=== PATIENT | male | born 1970 | race Caucasian/White ===

== ENCOUNTER 2018-01-18 09:44 | Emergency (ER) | payer OTHER ==
--- NOTE | 2018-01-18 09:56 | ERPHSYRPT ---
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 He began work at 6 AM and by 8 AM he had to leave work because of the rash on his arms and face as well as having difficulty breathing. He called his local doctors office and was told to come to the ER. He did not take Benadryl. He thinks he may have an allergy to latex from previous exposure but was uncertain until today. He takes no medicines. Timing/Duration: today, gradual onset, worse Severity of Dyspnea-Max: mild Severity of Dyspnea-Current: mild Possible Cause: no prior episodes, allergen exposure (latex) Modifying Factors: Improves With: nothing Associated Symptoms: wheezing Allergies/Adverse Reactions: latex Allergy (Verified 01/18/18 09:55) Home Medications: No Reportable Medications [No Reported Medications] 11/20/15 [History] Hx Tetanus, Diphtheria Vaccination/Date Given: Yes Hx Influenza Vaccination/Date Given: No Hx Pneumococcal Vaccination/Date Given: No Immunizations Up to Date: Yes - Review of Systems Constitutional: No Fever, No Chills Eyes: No Symptoms Ears, Nose, & Throat: No Symptoms Respiratory: Dyspnea, Wheezing Cardiac: No Chest Pain, No Edema, No Syncope Abdominal/Gastrointestinal: No Abdominal Pain, No Nausea, No Vomiting, No Diarrhea Genitourinary Symptoms: No Dysuria Musculoskeletal: No Back Pain, No Neck Pain Skin: Rash Neurological: No Dizziness, No Focal Weakness, No Sensory Changes Psychological: No Symptoms Endocrine: No Symptoms Hematologic/Lymphatic: No Symptoms Immunological/Allergic: No Symptoms All Other Systems: Reviewed and Negative - Past Medical History Pertinent Past Medical History: No Neurological History: No Pertinent History ENT History: No Pertinent History Cardiac History: No Pertinent History Respiratory History: No Pertinent History Endocrine Medical History: No Pertinent History Musculoskeletal History: No Pertinent History GI Medical History: No Pertinent History History: No Pertinent History Psycho-Social History: No Pertinent History Male Reproductive Disorders: No Pertinent History - Past Surgical History Past Surgical History: No Neuro Surgical History: No Pertinent History Cardiac: No Pertinent History Respiratory: No Pertinent History Gastrointestinal: No Pertinent History Genitourinary: No Pertinent History Musculoskeletal: Orthopedic Surgery Male Surgical History: No Pertinent History Other Surgical History: FOOT SURGERY - Social History Smoking Status: Never smoker How long have you smoked: 30 yrs Exposure to second hand smoke: No Drug Use: none Patient Lives Alone: No - Nursing Vital Signs Nursing Vital Signs: Initial Vital Signs Temperature 97.4 F 01/18/18 09:48 Pulse Rate 102 H 01/18/18 09:48 Respiratory Rate 22 01/18/18 09:48 Blood Pressure 157/87 01/18/18 09:48 O2 Sat by Pulse Oximetry 97 01/18/18 09:48 Pain Scale Pain Intensity 0 - Physical Exam General Appearance: mild distress, anxiety Eye Exam: PERRL/EOMI Ears, Nose, Throat Exam: hearing grossly normal, tonsillar swelling (swelling of pharynx and uvula.) Neck Exam: normal inspection, supple Respiratory Exam: wheezing (mild) Cardiovascular/Chest Exam: normal heart sounds, regular rate/rhythm Abdominal/Gastrointestinal Exam: soft, No tenderness, No distention, No mass Rectal Exam: not done Extremity Exam: non-tender, normal range of motion, normal inspection, no calf tenderness, no pedal edema Neurologic Exam: alert, oriented x 3, cooperative, plant protection guard II-XII nml as tested, sensation nml, No motor deficits Skin Exam: rash (red rash over upper extremities and face.) SpO2 Interpretation: normal SpO2: 98 Oxygen Delivery: Room Air - Radiology Exams Chest X-ray Interpretation: Reviewed by me, Teleradiologist Report (per ), Negative ( per Dr Guerra) Ordered Tests: Active Orders 24 hr Category Date Time Status Cap Blocker STAT Care 01/18/18 10:03 Active IV Insertion STAT Care 01/18/18 10:01 Active Pulse Oximetry (ED) STAT Care 01/18/18 10:01 Active CHEST 2 VIEWS (PA AND LAT) Stat Exams 01/18/18 10:02 Completed BMP Stat Lab 01/18/18 10:28 Completed CBC W DIFF Stat Lab 01/18/18 10:01 Completed Respiratory Nebulizer STAT RT 01/18/18 10:03 Completed Medication Summary Discontinued Medications Generic Name Dose Route Start Last Admin Trade Name Freq PRN Reason Stop Dose Admin Albuterol/Ipratropium 3 ml 01/18/18 10:01 01/18/18 10:05 Duoneb 0.5-3 Mg/3 Ml Neb IH 01/18/18 10:02 3 ml STAT ONE Administration Albuterol/Ipratropium Confirm 01/18/18 10:03 Duoneb 0.5-3 Mg/3 Ml Neb Administered 01/18/18 10:04 Dose 3 ml IH .STK-MED ONE Diphenhydramine HCl 50 mg 01/18/18 10:03 01/18/18 10:24 Benadryl 50 Mg/Ml IV 01/18/18 10:04 50 mg STAT ONE Administration Diphenhydramine HCl Confirm 01/18/18 10:17 Benadryl 50 Mg/Ml Administered 01/18/18 10:18 Dose 50 mg .ROUTE .STK-MED ONE Sodium Chloride 1,000 mls @ 999 mls/hr 01/18/18 10:01 01/18/18 10:23 Sodium Chloride 0.9% 1000 Ml IV 01/18/18 11:01 999 mls/hr .Q1H1M STA Administration Sodium Chloride Confirm 01/18/18 10:17 Sodium Chloride 0.9% 1000 Ml Administered 01/18/18 10:18 Dose 1,000 mls @ ud .ROUTE .STK-MED ONE Methylprednisolone Sodium Succinate 125 mg 01/18/18 10:01 01/18/18 10:24 Solu-Medrol 125 Mg IV 01/18/18 10:02 125 mg STAT ONE Administration Methylprednisolone Sodium Succinate Confirm 01/18/18 10:17 Solu-Medrol 125 Mg Administered 01/18/18 10:18 Dose 125 mg .ROUTE .STK-MED ONE Lab/Rad Data: Laboratory Result Diagrams 01/18/18 10:01 01/18/18 10:28 Laboratory Results 01/18/18 01/18/18 Range/Units 10:28 10:01 WBC 5.3 (4.0-10.5) K/mm3 RBC 5.16 (4.1-5.6) M/mm3 Hgb 12.9 (12.5-18.0) gm/dl Hct 38.7 L (42-50) % MCV 75.0 L (78-100) fl MCH 25.0 L (26-32) pg MCHC 33.3 (32-36) g/dl RDW 14.7 H (11.5-14.0) % Plt Count 130 L (150-450) K/mm3 Gran % 60.1 (36.0-66.0) % Eos # (Auto) 0.20 (0-0.5) Absolute Lymphs (auto) 1.39 (1.0-4.6) Absolute Monos (auto) 0.51 (0.0-1.3) Lymphocytes % 26.3 (24.0-44.0) % Monocytes % 9.6 (0.0-12.0) % Eosinophils % 3.8 (0.00-5.0) % Basophils % 0.2 (0.0-0.4) % Absolute Granulocytes 3.18 (1.4-6.9) Basophils # 0.01 (0-0.4) Sodium 144 (137-145) mmol/L Potassium 3.5 (3.5-5.1) mmol/L Chloride 109 H (98-107) mmol/L Carbon Dioxide 25 (22-30) mmol/L Anion Gap 13.2 (5-15) MEQ/L BUN 12 (9-20) mg/dL Creatinine 0.61 L (0.66-1.25) mg/dL Estimated GFR > 60.0 ML/MIN Glucose 111 H (74-106) mg/dL Calcium 9.1 (8.4-10.2) mg/dL Slides for Path Review YES - Progress Progress: improved Air Movement: good Blood Culture(s) Obtained: No Antibiotics given: No Counseled pt/family regarding: lab results, diagnosis, rad results - Departure Time of Disposition: 11:12 Departure Disposition: Home Clinical Impression: Allergic reaction to chemical substance Condition: Stable Critical Care Time: No Referrals: CAROLINA ENAMORADO [Primary Care Provider] - Additional Instructions: You had an allergic reaction to latex. You were given a DuoNeb breathing treatment in the ER. You were also given Solu-Medrol 125 mg, Benadryl 50 mg, and fluids by IV in the ER. You may continue to take Benadryl 50 mg orally every 2-4 hours as needed. Follow-up with your primary medical doctor as needed.
[2018-01-18] MEDS ORDERED: DUONEB 0.5-3 MG/3 ml Neb IH ONE (10:03)
[2018-01-18] MEDS: DUONEB 0.5-3 MG/3 ml Neb IH ONE (10:05)
[2018-01-18] MEDS ORDERED: solu-MEDROL 125 MG ONE (10:17)
[2018-01-18] MEDS ORDERED: BENADRYL 50 MG/ML ONE (10:17)
[2018-01-18] MEDS ORDERED: Sodium Chloride 0.9% 1000 ML 1,000 ML ONE (10:17)
[2018-01-18] MEDS: Sodium Chloride 0.9% 1000 ML 1,000 ML IV STA (10:23)
[2018-01-18 10:24] LABS: BASOPHIL % 0.2 % (0.0-0.4); Basophil (Absolute #) 0.01 (0-0.4); Eosinophil % 3.8 % (0.00-5.0); Granulocyte Absolute (ANC) 3.18 (1.4-6.9); Granulocytes % 60.1 % (36.0-66.0); Hematocrit 38.7 % (42-50); Hemoglobin 12.9 gm/dl (12.5-18.0); Lymphocyte (Absolute #) 1.39 (1.0-4.6); Lymphocytes % 26.3 % (24.0-44.0); Mean Corpuscular Hgb Concent. 33.3 g/dl (32-36); Monocyte (Absolute #) 0.51 (0.0-1.3); Monocytes % 9.6 % (0.0-12.0); Platelet Count 130 K/mm3 (150-450); Red Blood Count 5.16 M/mm3 (4.1-5.6); Red Cell Distribution Width 14.7 % (11.5-14.0); White Blood Count 5.3 K/mm3 (4.0-10.5)
[2018-01-18] MEDS: solu-MEDROL 125 MG IV ONE (10:24)
[2018-01-18] MEDS: BENADRYL 50 MG/ML IV ONE (10:24)
[2018-01-18 10:38] LABS: Slide Review 1 YES
[2018-01-18 10:40] LABS: ANION GAP 13.2 MEQ/L (5-15); BLOOD UREA NITROGEN 12 mg/dL (9-20); CHLORIDE 109 mmol/L (98-107); Calcium 9.1 mg/dL (8.4-10.2); Carbon Dioxide 25 mmol/L (22-30); Creatinine 1 0.61 mg/dL (0.66-1.25); Glucose 111 mg/dL (74-106); Potassium 3.5 mmol/L (3.5-5.1); SODIUM 144 mmol/L (137-145)
--- NOTE | 2018-01-18 11:08 | XRAY ---
Indication: Short of breath. Comparison: May 21, 2016. PA/lateral chest remains hyperinflated and clear with a few incidental calcified granulomas. Heart is not enlarged. Vascularity normal. Bony thorax intact again with old right clavicle fracture. Impression: Stable nonacute hyperinflated chest with chronic features.
[2018-01-18 11:29] VITALS: BP 127/84
[2018-01-18 11:32] VITALS: PULSE 78; O2SAT 98
== END 2018-01-18 11:32 | disposition home or self-care (01) ==
LOC: ED 09:44
DX: L50.0 Allergic urticaria (principal); R06.02 Shortness of breath; R21 Rash and other nonspecific skin eruption; T65.811A Toxic effect of latex, accidental (unintentional), initial encounter
CPT/HCPCS: 36000; 36415; 71046; 80048; 85025; 93041; 94150; 94640; 96360; 96374; 96375; 99284; J1200; J2930; A9270-GY

== ENCOUNTER 2018-02-09 19:13 | Emergency (ER) | payer OTHER ==
[2018-02-09] MEDS ORDERED: Sodium Chloride 0.9% 1000 ML 1,000 ML ONE ×2 (19:39→20:45)
[2018-02-09] MEDS: Sodium Chloride 0.9% 1000 ML 1,000 ML IV STA ×2 (19:42→20:48)
--- NOTE | 2018-02-09 19:43 | ERPHSYRPT ---
- History of Present Illness Time Seen by Provider: 02/09/18 19:32 Source: patient Exam Limitations: no limitations Patient Subjective Stated Complaint: Pt arrives to ER with c/o cough, sob, fever , sore throat, generalized body aches and "I don't smell right" started yesterday. Saw Dr. Enamorado earlier today and was told "there's nothing wrong with me, it's probably a cold". This RN agrees with PCP diagnosis, but pt wants a 2nd opinion. Triage Nursing Assessment: see above Physician History: 48-year-old white male previously healthy arrives with complaint of general malaise, general myalgia, sore throat, shortness of breath symptoms for one day. Patient was seen by his family doctor today told he perhaps had a "cold" Patient is not vomiting he states that he has some low sacral back pain Denies any injury. Past medical history is negative Past surgical history includes foot surgery due to lawn more accident as a child. Social history occasional alcohol rare marijuana denies tobacco use. Modifying Factors: Improves With: nothing Associated Symptoms: shortness of breath, chills, malaise, No nausea, No vomiting, No abdominal pain, No heartburn, No diaphoresis, No cough, No chest pain, No headaches, No loss of appetite, No syncope, No seizure, No weakness Allergies/Adverse Reactions: latex Allergy (Verified 02/09/18 19:24) Hx Tetanus, Diphtheria Vaccination/Date Given: Yes Hx Influenza Vaccination/Date Given: No Hx Pneumococcal Vaccination/Date Given: No - Review of Systems Constitutional: Malaise, No Fever, No Chills Eyes: No Symptoms Ears, Nose, & Throat: No Symptoms, Throat Pain, No Ear Pain, No Ear Discharge, No Hearing Changes, No Nose Congestion, No Nose Discharge Respiratory: Dyspnea, No Cough, No Cyanosis, No Dyspnea on Exertion (KRUGER), No Wheezing Cardiac: No Chest Pain, No Edema, No Syncope Abdominal/Gastrointestinal: No Abdominal Pain, No Nausea, No Vomiting, No Diarrhea Genitourinary Symptoms: No Dysuria Musculoskeletal: Back Pain Skin: No Rash Neurological: No Dizziness, No Focal Weakness, No Sensory Changes Psychological: No Symptoms Endocrine: No Symptoms All Other Systems: Reviewed and Negative - Past Medical History Pertinent Past Medical History: Yes Neurological History: No Pertinent History ENT History: No Pertinent History Cardiac History: No Pertinent History Respiratory History: No Pertinent History Endocrine Medical History: No Pertinent History Musculoskeletal History: No Pertinent History GI Medical History: No Pertinent History History: No Pertinent History Psycho-Social History: No Pertinent History Male Reproductive Disorders: No Pertinent History - Past Surgical History Past Surgical History: Yes Neuro Surgical History: No Pertinent History Cardiac: No Pertinent History Respiratory: No Pertinent History Gastrointestinal: No Pertinent History Genitourinary: No Pertinent History Musculoskeletal: Orthopedic Surgery Male Surgical History: No Pertinent History Other Surgical History: FOOT SURGERY - Social History Smoking Status: Former smoker How long have you smoked: 30 yrs Exposure to second hand smoke: No Drug Use: none Patient Lives Alone: No - Nursing Vital Signs Nursing Vital Signs: Initial Vital Signs Temperature 100.1 F 02/09/18 19:15 Pulse Rate 106 H 02/09/18 19:15 Respiratory Rate 18 02/09/18 19:15 Blood Pressure 144/90 02/09/18 19:15 O2 Sat by Pulse Oximetry 98 02/09/18 19:15 Pain Scale Pain Intensity 0 - Physical Exam General Appearance: no apparent distress, alert Eye Exam: PERRL/EOMI, eyes nml inspection Ears, Nose, Throat Exam: normal ENT inspection, TMs normal, pharynx normal, moist mucous membranes Neck Exam: normal inspection, non-tender, supple, full range of motion Respiratory Exam: normal breath sounds, lungs clear, No respiratory distress Cardiovascular Exam: regular rate/rhythm (which is artery), normal heart sounds , normal peripheral pulses, friction rub, tachycardia, capillary refill <2 sec Gastrointestinal/Abdomen Exam: soft, normal bowel sounds, No tenderness, No mass Back Exam: normal inspection, normal range of motion, No CVA tenderness, No vertebral tenderness Extremity Exam: normal inspection, normal range of motion, pelvis stable Neurologic Exam: alert, oriented x 3, cooperative, data processing systems project planner II-XII nml as tested, normal mood/affect, nml cerebellar function, nml station & gait, sensation nml, No motor deficits Skin Exam: normal color, warm, dry, No rash Lymphatic Exam: No adenopathy SpO2 Interpretation: normal (99%) SpO2: 99 Oxygen Delivery: Room Air - Course Nursing assessment & vital signs reviewed: Yes EKG Interpreted by Me: RATE (125), Sinus Tach, NORMAL AXIS, Other (EKG sinus tachycardia,with PVCs < NO ACUTE ST or T wave changes noted) - Radiology Exams Chest X-ray Interpretation: Interpreted by me (no acute disease process noted) Ordered Tests: Active Orders 24 hr Category Date Time Status Accucheck STAT Care 02/09/18 19:39 Active EKG-ER Only STAT Care 02/09/18 19:36 Active IV Insertion STAT Care 02/09/18 19:36 Active CHEST 1 VIEW (PORTABLE) Stat Exams 02/09/18 19:36 Taken AMYLASE Stat Lab 02/09/18 19:45 Completed BLOOD CULTURE Stat Lab 02/09/18 19:55 Received CBC W DIFF Stat Lab 02/09/18 19:45 Completed CMP Stat Lab 02/09/18 19:45 Completed CULTURE,SPUTUM Stat Lab 02/09/18 08:14 Received CULTURE,URINE Stat Lab 02/09/18 20:29 Received D-DIMER QUANTITATION Stat Lab 02/09/18 19:45 Completed LIPASE Stat Lab 02/09/18 19:45 Completed Lactic Acid Stat Lab 02/09/18 20:00 Completed TROPONIN Q3H Lab 02/09/18 19:45 Completed TROPONIN Q3H Lab 02/09/18 23:00 Ordered TROPONIN Q3H Lab 02/10/18 02:00 Ordered TROPONIN Q3H Lab 02/10/18 05:00 Ordered TROPONIN Q3H Lab 02/10/18 08:00 Ordered UA W/ MICROSCOPIC Stat Lab 02/09/18 20:29 Completed Urine Triage Profile Stat Lab 02/09/18 20:29 Completed Medication Summary Generic Name Dose Route Start Last Admin Trade Name Freq PRN Reason Stop Dose Admin Sodium Chloride 1,000 mls @ 999 mls/hr 02/09/18 20:41 02/09/18 20:48 Sodium Chloride 0.9% 1000 Ml IV 02/09/18 21:41 999 mls/hr .Q1H1M STA Administration Discontinued Medications Generic Name Dose Route Start Last Admin Trade Name Freq PRN Reason Stop Dose Admin Azithromycin 500 mg 02/09/18 21:26 Zithromax 250 Mg Tablet PO 02/09/18 21:27 STAT ONE Sodium Chloride 1,000 mls @ 999 mls/hr 02/09/18 19:36 02/09/18 20:49 Sodium Chloride 0.9% 1000 Ml IV 02/09/18 20:36 Infused .Q1H1M STA Infusion Sodium Chloride Confirm 02/09/18 19:39 Sodium Chloride 0.9% 1000 Ml Administered 02/09/18 19:40 Dose 1,000 mls @ ud .ROUTE .STK-MED ONE Sodium Chloride Confirm 02/09/18 20:45 Sodium Chloride 0.9% 1000 Ml Administered 02/09/18 20:46 Dose 1,000 mls @ ud .ROUTE .[facility] ONE Lab/Rad Data: Laboratory Result Diagrams 02/09/18 19:45 02/09/18 19:45 Laboratory Results 02/09/18 02/09/18 02/09/18 Range/Units 20:29 20:29 20:00 WBC (4.0-10.5) K/mm3 RBC (4.1-5.6) M/mm3 Hgb (12.5-18.0) gm/dl Hct (42-50) % MCV (78-100) fl MCH (26-32) pg MCHC (32-36) g/dl RDW (11.5-14.0) % Plt Count (150-450) K/mm3 Gran % (36.0-66.0) % Eos # (Auto) (0-0.5) Absolute Lymphs (auto) (1.0-4.6) Absolute Monos (auto) (0.0-1.3) Lymphocytes % (24.0-44.0) % Monocytes % (0.0-12.0) % Eosinophils % (0.00-5.0) % Basophils % (0.0-0.4) % Absolute Granulocytes (1.4-6.9) Basophils # (0-0.4) D-Dimer (215-500) ng/mL Sodium (137-145) mmol/L Potassium (3.5-5.1) mmol/L Chloride (98-107) mmol/L Carbon Dioxide (22-30) mmol/L Anion Gap (5-15) MEQ/L BUN (9-20) mg/dL Creatinine (0.66-1.25) mg/dL Estimated GFR ML/MIN Glucose (74-106) mg/dL Lactic Acid 1.4 (0.4-2.0) Calcium (8.4-10.2) mg/dL Total Bilirubin (0.2-1.3) mg/dL AST (17-59) U/L ALT (0-50) U/L Alkaline Phosphatase (38-126) U/L Troponin I (0.000-0.034) ng/mL Serum Total Protein (6.3-8.2) g/dL Albumin (3.5-5.0) g/dL Amylase (30-110) U/L Lipase (23-300) U/L Ur Collection Type VOID Urine Color YELLOW (YELLOW) Urine Appearance CLEAR (CLEAR) Urine pH 7.0 (5-6) Ur Specific [place] 1.005 (1.005-1.025) Urine Protein TRACE (Negative) Urine Ketones NEGATIVE (NEGATIVE) Urine Blood 5-10 (0-5) Drake/ul Urine Nitrite NEGATIVE (NEGATIVE) Urine Bilirubin NEGATIVE (NEGATIVE) Urine Urobilinogen 1 (0-1) mg/dL Ur Leukocyte Esterase NEGATIVE (NEGATIVE) Urine Microscopic RBC 0-2 (0-2) /HPF Urine Microscopic WBC 0-2 (0-5) /HPF Urine Bacteria RARE (NEGATIVE) /HPF Urine Culture Reflexed YES (NO) Urine Glucose NEGATIVE (NEGATIVE) mg/dL Urine Opiates Level NEGATIVE (NEGATIVE) Ur Methadone NEGATIVE (NEGATIVE) Urine Barbiturates NEGATIVE (NEGATIVE) Ur Phencyclidine (PCP) NEGATIVE (NEGATIVE) Urine Amphetamine NEGATIVE (NEGATIVE) U Benzodiazepine Level NEGATIVE (NEGATIVE) Urine Cocaine NEGATIVE (NEGATIVE) Urine Marijuana (THC) POSITIVE (NEGATIVE) Group A Strep Antibody (NEGATIVE) Specimen Received 02/097 02/09/18 02/09/18 02/09/18 Range/Units 19:55 19:45 19:45 WBC (4.0-10.5) K/mm3 RBC (4.1-5.6) M/mm3 Hgb (12.5-18.0) gm/dl Hct (42-50) % MCV (78-100) fl MCH (26-32) pg MCHC (32-36) g/dl RDW (11.5-14.0) % Plt Count (150-450) K/mm3 Gran % (36.0-66.0) % Eos # (Auto) (0-0.5) Absolute Lymphs (auto) (1.0-4.6) Absolute Monos (auto) (0.0-1.3) Lymphocytes % (24.0-44.0) % Monocytes % (0.0-12.0) % Eosinophils % (0.00-5.0) % Basophils % (0.0-0.4) % Absolute Granulocytes (1.4-6.9) Basophils # (0-0.4) D-Dimer 276 (215-500) ng/mL Sodium (137-145) mmol/L Potassium (3.5-5.1) mmol/L Chloride (98-107) mmol/L Carbon Dioxide (22-30) mmol/L Anion Gap (5-15) MEQ/L BUN (9-20) mg/dL Creatinine (0.66-1.25) mg/dL Estimated GFR ML/MIN Glucose (74-106) mg/dL Lactic Acid (0.4-2.0) Calcium (8.4-10.2) mg/dL Total Bilirubin (0.2-1.3) mg/dL AST (17-59) U/L ALT (0-50) U/L Alkaline Phosphatase (38-126) U/L Troponin I < 0.012 (0.000-0.034) ng/mL Serum Total Protein (6.3-8.2) g/dL Albumin (3.5-5.0) g/dL Amylase (30-110) U/L Lipase (23-300) U/L Ur Collection Type Urine Color (YELLOW) Urine Appearance (CLEAR) Urine pH (5-6) Ur Specific [place] (1.005-1.025) Urine Protein (Negative) Urine Ketones (NEGATIVE) Urine Blood (0-5) Drake/ul Urine Nitrite (NEGATIVE) Urine Bilirubin (NEGATIVE) Urine Urobilinogen (0-1) mg/dL Ur Leukocyte Esterase (NEGATIVE) Urine Microscopic RBC (0-2) /HPF Urine Microscopic WBC (0-5) /HPF Urine Bacteria (NEGATIVE) /HPF Urine Culture Reflexed (NO) Urine Glucose (NEGATIVE) mg/dL Urine Opiates Level (NEGATIVE) Ur Methadone (NEGATIVE) Urine Barbiturates (NEGATIVE) Ur Phencyclidine (PCP) (NEGATIVE) Urine Amphetamine (NEGATIVE) U Benzodiazepine Level (NEGATIVE) Urine Cocaine (NEGATIVE) Urine Marijuana (THC) (NEGATIVE) Group A Strep Antibody NEGATIVE (NEGATIVE) Specimen Received 02/09/18 02/09/18 Range/Units 19:45 19:45 WBC 7.2 (4.0-10.5) K/mm3 RBC 4.99 (4.1-5.6) M/mm3 Hgb 12.8 (12.5-18.0) gm/dl Hct 37.7 L (42-50) % MCV 75.6 L (78-100) fl MCH 25.7 L (26-32) pg MCHC 34.0 (32-36) g/dl RDW 14.5 H (11.5-14.0) % Plt Count 116 L (150-450) K/mm3 Gran % 76.9 H (36.0-66.0) % Eos # (Auto) 0.01 (0-0.5) Absolute Lymphs (auto) 0.75 L (1.0-4.6) Absolute Monos (auto) 0.90 (0.0-1.3) Lymphocytes % 10.4 L (24.0-44.0) % Monocytes % 12.5 H (0.0-12.0) % Eosinophils % 0.1 (0.00-5.0) % Basophils % 0.1 (0.0-0.4) % Absolute Granulocytes 5.55 (1.4-6.9) Basophils # 0.01 (0-0.4) D-Dimer (215-500) ng/mL Sodium 140 (137-145) mmol/L Potassium 3.5 (3.5-5.1) mmol/L Chloride 103 (98-107) mmol/L Carbon Dioxide 26 (22-30) mmol/L Anion Gap 14.7 (5-15) MEQ/L BUN 11 (9-20) mg/dL Creatinine 0.58 L (0.66-1.25) mg/dL Estimated GFR > 60.0 ML/MIN Glucose 136 H (74-106) mg/dL Lactic Acid (0.4-2.0) Calcium 8.9 (8.4-10.2) mg/dL Total Bilirubin 0.90 (0.2-1.3) mg/dL AST 21 (17-59) U/L ALT 24 (0-50) U/L Alkaline Phosphatase 146 H (38-126) U/L Troponin I (0.000-0.034) ng/mL Serum Total Protein 6.9 (6.3-8.2) g/dL Albumin 3.9 (3.5-5.0) g/dL Amylase 50 (30-110) U/L Lipase 61 (23-300) U/L Ur Collection Type Urine Color (YELLOW) Urine Appearance (CLEAR) Urine pH (5-6) Ur Specific [place] (1.005-1.025) Urine Protein (Negative) Urine Ketones (NEGATIVE) Urine Blood (0-5) Drake/ul Urine Nitrite (NEGATIVE) Urine Bilirubin (NEGATIVE) Urine Urobilinogen (0-1) mg/dL Ur Leukocyte Esterase (NEGATIVE) Urine Microscopic RBC (0-2) /HPF Urine Microscopic WBC (0-5) /HPF Urine Bacteria (NEGATIVE) /HPF Urine Culture Reflexed (NO) Urine Glucose (NEGATIVE) mg/dL Urine Opiates Level (NEGATIVE) Ur Methadone (NEGATIVE) Urine Barbiturates (NEGATIVE) Ur Phencyclidine (PCP) (NEGATIVE) Urine Amphetamine (NEGATIVE) U Benzodiazepine Level (NEGATIVE) Urine Cocaine (NEGATIVE) Urine Marijuana (THC) (NEGATIVE) Group A Strep Antibody (NEGATIVE) Specimen Received - Progress Progress: improved Progress Note: 02/09/18 21:21 This is a 48-year-old white male previously healthy arrives with complaint of short of breath sore throat aching all day. Patient initially seen by his family doctor he was told that he might have a virus patient is worried something else is going on with him. On physical examination patient is somewhat tachycardic with a heart rate of 106 the temperature is 100.1 blood pressure stable 144/90 O2 sats are 100% on physical examination the patient with normal exam other than the patient is mildly tachycardic EKG shows sinus tachycardia 1 25 bpm several PVCs are noted unifocal. Otherwise normal EKG no acute ST or T wave changes normal axis Patient's serum lactate is 1.4 CBC White blood cell 7.2 hemoglobin 12.8 hematocrit 37.7 platelets 116 patient's urine drug screen are positive for THC urinalysis is essentially negative, chest x-ray no acute disease process noted strep is negative chemistry is essentially normal troponin within normal limits d-dimer within normal limits. Patient is given 2 L of normal saline he is feeling much better. The nurse reports of the patient's coughed up a small amount of pink tinged sputum. Will go ahead and place patient on Zithromax Z-Mai. Plan to discharge. - Departure Time of Disposition: 21:27 Departure Disposition: Home Clinical Impression: Shortness of breath, Bronchitis, Volume depletion Condition: Fair Critical Care Time: No Referrals: CAROLINA ENAMORADO [Primary Care Provider] - Additional Instructions: Return home. Plenty of fluids. Zithromax Z-MAI as directed. Follow-up with your family doctor. Return for acute distress or for severe symptoms. Prescriptions: Azithromycin 250 mg [Zithromax 250 MG TABLET] 250 mg PO DAILY #4 tablet
[2018-02-09 20:07] LABS: BASOPHIL % 0.1 % (0.0-0.4); Basophil (Absolute #) 0.01 (0-0.4); Eosinophil % 0.1 % (0.00-5.0); Eosinophil (Absolute #) 0.01 (0-0.5); Granulocyte Absolute (ANC) 5.55 (1.4-6.9); Granulocytes % 76.9 % (36.0-66.0); Hematocrit 37.7 % (42-50); Hemoglobin 12.8 gm/dl (12.5-18.0); Lymphocyte (Absolute #) 0.75 (1.0-4.6); Lymphocytes % 10.4 % (24.0-44.0); Mean Cell Volume 75.6 fl (78-100); Mean Corpuscular Hemoglobin 25.7 pg (26-32); Monocytes % 12.5 % (0.0-12.0); Platelet Count 116 K/mm3 (150-450); Red Blood Count 4.99 M/mm3 (4.1-5.6); Red Cell Distribution Width 14.5 % (11.5-14.0); White Blood Count 7.2 K/mm3 (4.0-10.5)
[2018-02-09 20:28] LABS: ALBUMIN 3.9 g/dL (3.5-5.0); ALKALINE PHOSPHATASE 146 U/L (38-126); AMYLASE 50 U/L (30-110); ANION GAP 14.7 MEQ/L (5-15); BLOOD UREA NITROGEN 11 mg/dL (9-20); CHLORIDE 103 mmol/L (98-107); Calcium 8.9 mg/dL (8.4-10.2); Carbon Dioxide 26 mmol/L (22-30); Creatinine 1 0.58 mg/dL (0.66-1.25); Glucose 136 mg/dL (74-106); LIPASE 61 U/L (23-300); Potassium 3.5 mmol/L (3.5-5.1); SGOT/AST 21 U/L (17-59); SGPT/ALT 24 U/L (0-50); SODIUM 140 mmol/L (137-145); Total Protein 6.9 g/dL (6.3-8.2)
[2018-02-09 20:41] VITALS: O2SAT 99
[2018-02-09 20:43] LABS: Appearance CLEAR (CLEAR); Bilirubin NEGATIVE (NEGATIVE); Glucose NEGATIVE (NEGATIVE); Ketones NEGATIVE (NEGATIVE); Leukocyte Esterase NEGATIVE (NEGATIVE); Nitrite NEGATIVE (NEGATIVE); Protein,Urine Dip TRACE (Negative); Specific Gravity 1.005 (1.005-1.025); Urobilinogen 1 mg/dL (0-1)
[2018-02-09 20:44] LABS: RBC 0-2 /HPF (0-2); WBC 0-2 /HPF (0-5)
[2018-02-09 20:45] LABS: Bacteria RARE /HPF (NEGATIVE)
[2018-02-09 21:03] LABS: Amphetamine,Urine NEGATIVE (NEGATIVE); Barbiturate,Urine NEGATIVE (NEGATIVE); Benzodiazepine,Urine NEGATIVE (NEGATIVE); Cocaine,Urine NEGATIVE (NEGATIVE); Methadone,Urine NEGATIVE (NEGATIVE); Opiate,Urine NEGATIVE (NEGATIVE); PCP,Urine NEGATIVE (NEGATIVE); THC,Urine POSITIVE (NEGATIVE)
[2018-02-09] MEDS ORDERED: Zithromax 250 MG TABLET ONE (21:28)
[2018-02-09 21:30] VITALS: BP 128/76; PULSE 104
[2018-02-09] MEDS: Zithromax 250 MG TABLET PO ONE (21:30)
[2018-02-09 22:03] LABS: Slide Review 1 YES
--- NOTE | 2018-02-10 09:02 | XRAY ---
Indication: Cough, congestion, short of breath. Comparison: January 18, 2018. Portable chest remains hyperinflated and clear with a few incidental calcified granulomas. Heart and mediastinal structures stable and within normal limits. No new/acute findings. Bony thorax intact again with old right clavicle fracture. Impression: Stable nonacute hyperinflated chest with chronic features.
== END 2018-02-09 21:36 | disposition home or self-care (01) ==
LOC: ED 19:13
DX: J40 Bronchitis, not specified as acute or chronic (principal); E86.9 Volume depletion, unspecified; R53.81 Other malaise; M79.1 Myalgia; J02.9 Acute pharyngitis, unspecified
CPT/HCPCS: 36000; 36415; 71045; 80053; 80307; 81000; 82150; 82962; 83605; 83690; 84484; 85025; 85379; 87040; 87070; 87086; 87651; 93005; 96360; 96374; 99284; A9270-GY